=== PATIENT | female | born 1990 | race Caucasian/White ===

== ENCOUNTER 2020-04-11 20:47 | Emergency (ER) | payer BC ==
[~2020-04-11] VITALS: Ht 167.6 cm; Wt 64.9 kg
--- NOTE | 2020-04-11 21:00 | NUR ---
ED Nurse Note: pt presents to ED c/o L index finger lac. pt states that she was cutting vegetables for dinner and accidentally slipped and cut her finger. she states she cut a chunk of skin off and has brought it with her in a zip-lock bag. 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 pt appears to have it dressed with gauze and an ice pack on top of it
[2020-04-11 21:02] VITALS: BP 135/86
--- NOTE | 2020-04-11 21:31 | Emergency Room Report ---
History of Present Illness General Chief Complaint: Laceration Source: Patient Present Illness HPI Patient is a 30-year-old female presents for increased pain to the left index finger. Patient had been cutting with a knife and accidentally sliced off the pad of the finger. Injury occurred just prior to arrival. Tetanus is up-to-date. 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 Denies any other locations of pain. Allergies: Coded Allergies: No Known Allergies (Unverified , 04/11/20) COVID-19 Screening Contact w/high risk pt: No Experienced COVID-19 symptoms?: No COVID-19 Testing performed HOSPITAL CLEANING SPECIALIST: No Patient History Past Medical History: see triage record Last Menstrual Period: current Reviewed Nursing Documentation: PMH: Agreed; PSxH: Agreed Nursing Documentation-PMH Past Medical History: No Stated History Review of Systems All Other Systems: negative except mentioned in HPI Physical Exam Vital Signs Date Time Temp Pulse Resp B/P (MAP) Pulse Ox O2 Delivery O2 Flow Rate FiO2 04/11/20 20:53 97.9 88 18 135/86 (102) 97 Room Air General Appearance: well appearing, no apparent distress, alert, GCS 15 Head: normocephalic, atraumatic ENT: hearing grossly normal, normal voice Neck: full range of motion, supple Respiratory: no respiratory distress, speaking full sentences Gastrointestinal: normal inspection, soft Neurologic: alert, motor strength/tone normal, tdp displays analyst III-XII nml as tested, oriented x3, normal gait Psychiatric: mood/affect normal Skin: other - Avulsion injury to the pad of the left fingertip Medical Decision Making Diagnostic Impression: Primary Impression: Fingertip avulsion ER Course Patient presented for fingertip injury. Differential diagnosis includes limited to foreign body, fracture, among others. Patient has a benign exam and does not appear to require any laboratory testing at this time. Patient declined x-ray imaging of the finger. Does not appear to be any evidence of bony injury externally. Patient's wound was irrigated and topical lidocaine with epinephrine was applied. Wound was initially noted to have some bleeding which improved after tourniquet and direct pressure. Avulsion was closed with tissue glue. Sterile dressing was applied subsequently. Patient given prescription for Keflex. She advised to have the wound rechecked in 2 to 3 days. She advised to return if worse. This medical record is generated with [email or web address] studio grip software. There may be some studio grip discrepancies related to use of this software Last Vital Signs Date Time Temp Pulse Resp B/P (MAP) Pulse Ox O2 Delivery O2 Flow Rate FiO2 04/11/20 21:02 97.9 18 135/86 97 Room Air 04/11/20 20:53 88 Status: improved Disposition: HOME, SELF-CARE Condition: Stable Scripts Ibuprofen* (MOTRIN*) 600 Mg Tablet 600 MG ORAL Q8H PRN for FOR PAIN, #30 TAB 0 Refills Prov: Darin Peoples MD 04/11/20 Cephalexin* (KEFLEX*) 250 Mg Tablet 250 MG ORAL EVERY 6 HOURS, #28 TAB Prov: Darin Peoples MD 04/11/20 Referrals: VINCENT FIGUEROA (PCP) Darin Peoples MD Apr 11, 2020 21:31
--- NOTE | 2020-04-11 21:46 | NUR ---
ED Nurse Note: ER MD and welding technician dressed lac
[2020-04-11] MEDS ORDERED: IBUPROFEN600 M1 ORAL (21:56)
[2020-04-11] MEDS ORDERED: CEPHALEXIN250 M2 ORAL (21:56)
[2020-04-11 22:00] VITALS: BP 122/82
--- NOTE | 2020-04-11 22:11 | NUR ---
ER DISCHARGE NOTE: Patient is cleared to be discharged per ERMD, pt is aox4, on room air, with stable vital signs. pt was given dc and prescription instructions, pt was able to verbalize understanding, pt id band removed. pt is able to ambulate with steady gait. pt took all belongings. Pt left in a private
== END 2020-04-11 22:00 | disposition home or self-care (01) ==
LOC: EMR 21:12
DX: S61.201A Unspecified open wound of left index finger without damage to nail, initial encounter (principal); W26.0XXA Contact with knife, initial encounter; Y92.9 Unspecified place or not applicable
CPT/HCPCS: 99281